=== PATIENT | female | born 1975 | race Caucasian/White ===

== ENCOUNTER 2023-05-16 16:09 | Emergency (ER) | payer MEDICAID ==
[~2023-05-16] VITALS: Ht 165.1 cm; Wt 67.0 kg
[2023-05-16 16:11] VITALS: O2SAT 99
[2023-05-16 18:55] LABS: BASOPHILS % 0.2 % (0.0-2.0); EOSINOPHILS % 0.6 % (0.0-5.0); HEMATOCRIT. 40.7 % (36.0-48.0); HEMOGLOBIN. 13.9 g/dL (12.0-16.0); LYMPHOCYTES % 29.9 % (20.0-50.0); MEAN CORPUSCULAR HEMOGLOBIN 29.5 pg (28.0-32.0); MEAN CORPUSCULAR HGB CONC 34.2 g/dL (31.0-37.0); MEAN CORPUSCULAR VOLUME 86.4 fL (81.0-99.0); MEAN PLATELET VOLUME 9.6 fl (7.4-10.4); MONOCYTES % 5.8 % (2.0-8.0); NEUTROPHILS % 63.5 % (40.0-76.0); PLATELET 137 x1000/uL (130-400); RED BLOOD CELL COUNT 4.71 mill/uL (4.2-5.4); RED CELL DISTRIBUTION WIDTH 14.2 % (11.6-14.6); WHITE BLOOD COUNT 5.6 x1000/uL (4.5-11.0)
[2023-05-16 19:10] LABS: HCG SCREEN NEGATIVE
[2023-05-16 19:14] LABS: ALANINE AMINOTRANSFERASE 16 IU/L (10-49); ALBUMIN 4.6 g/dL (3.2-4.8); ASPARTATE AMINOTRANSFERASE 21 IU/L (<34); BILIRUBIN TOTAL 0.5 mg/dL (0.1-1.0); CALCIUM 9.4 mg/dL (8.7-10.4); CARBON DIOXIDE 26 mEq/L (21-32); CHLORIDE 104 mEq/L (98-107); CREATININE 0.7 mg/dL (0.6-1.0); GLUCOSE 230 mg/dL (70-105); PROTEIN TOTAL 7.8 g/dL (6.0-8.3); SODIUM 136 mEq/L (136-145); UREA NITROGEN BLOOD 9 mg/dL (9-23)
[2023-05-16 19:42] VITALS: BP 124/76; PULSE 84; RESP 16; TEMP 98.7
== END 2023-05-16 19:50 | disposition home or self-care (01) ==
LOC: ER 16:09
DX: R10.9 Unspecified abdominal pain (principal); E11.65 Type 2 diabetes mellitus with hyperglycemia; Z91.148 Patient's other noncompliance with medication regimen for other reason
CPT/HCPCS: 80053; 82962; 84703; 85025; 36415; 76830; 76856; 99284; Z7610 ×2

== ENCOUNTER 2024-03-18 12:42 | Emergency (ER) | payer BC, MEDICAID ==
[~2024-03-18] VITALS: Ht 165.1 cm; Wt 70.0 kg
[2024-03-18 12:44] VITALS: O2SAT 100
[2024-03-18] MEDS: ACETAMINOPHEN 325MG TABLET PO STA (14:05)
[2024-03-18] MEDS: MECLIZINE 25MG TABLET PO ONE (14:06)
[2024-03-18] MEDS: ONDANSETRON 4MG ODT PO STA (14:06)
[2024-03-18 15:13] LABS: BASOPHILS % 0.2 % (0.0-2.0); EOSINOPHILS % 1.1 % (0.0-5.0); HEMATOCRIT. 42.6 % (36.0-48.0); HEMOGLOBIN. 14.3 g/dL (12.0-16.0); LYMPHOCYTES % 25.8 % (20.0-50.0); MEAN CORPUSCULAR HEMOGLOBIN 29.7 pg (28.0-32.0); MEAN CORPUSCULAR HGB CONC 33.6 g/dL (31.0-37.0); MEAN CORPUSCULAR VOLUME 88.2 fL (81.0-99.0); MEAN PLATELET VOLUME 10.2 fl (7.4-10.4); MONOCYTES % 7.7 % (2.0-8.0); NEUTROPHILS % 65.2 % (40.0-76.0); PLATELET 120 x1000/uL (130-400); RED BLOOD CELL COUNT 4.84 mill/uL (4.2-5.4); RED CELL DISTRIBUTION WIDTH 13.2 % (11.6-14.6); WHITE BLOOD COUNT 5.2 x1000/uL (4.5-11.0)
[2024-03-18 15:19] LABS: CHLORIDE 102 mEq/L (98-107); POTASSIUM 3.8 mEq/L (3.5-5.1); SODIUM 137 mEq/L (136-145)
[2024-03-18 15:20] LABS: CALCIUM 9.9 mg/dL (8.7-10.4); CARBON DIOXIDE 28 mEq/L (21-32)
[2024-03-18 15:25] LABS: CREATININE 0.8 mg/dL (0.6-1.0); HCG SCREEN NEGATIVE; UREA NITROGEN BLOOD 7 mg/dL (9-23)
[2024-03-18 15:29] LABS: TROPONIN I HIGH SENSITIVITY < 4 ng/L (3.0-34)
[2024-03-18 17:02] LABS: GLUCOSE 224 mg/dL (70-105)
[2024-03-18 17:14] VITALS: BP 100/69; PULSE 75; RESP 18; TEMP 36.8; O2SAT 100
== END 2024-03-18 17:15 | disposition home or self-care (01) ==
LOC: ER 12:42
DX: R51.9 Headache, unspecified (principal); R42 Dizziness and giddiness
CPT/HCPCS: 99284; 70450; 80048; 84703; 85025; 84484; 36415; 93005; J8597; Q0162